=== PATIENT | female | born 1955 | race Caucasian/White ===

== ENCOUNTER 2021-12-22 09:50 | Inpatient (IN) ==
[2021-12-22] MEDS ORDERED: Acetaminophen 325 MG TABLET PO PRN (14:42)
[2021-12-22] MEDS ORDERED: NON-FORMULARY MEDICATION 1 EACH EACH (Piperacillin-Tazo-Dextrose,Iso [Zosyn 3.375 Gm/50 Ml IV SCH (18:00)
[2021-12-22] MEDS: Piperacillin/Tazobactam 3.375 GM in 0.9 % Sodium Chloride Mini Bag 100 ML IVPB SCH (18:33)
[2021-12-22] MEDS: *HR* Heparin 5,000 UNIT/ML VIAL SQ SCH (18:34)
[2021-12-22] MEDS: Gabapentin 300 MG CAPSULE PO SCH (20:50)
[2021-12-22] MEDS: Melatonin 3 MG TABLET PO PRN (20:50)
[2021-12-23] MEDS: Ondansetron ODT 4 MG TAB.RAPDIS SL SCH ×2 (00:30→08:35)
[2021-12-23] MEDS: Piperacillin/Tazobactam 3.375 GM in 0.9 % Sodium Chloride Mini Bag 100 ML IVPB SCH ×2 (05:25→17:51)
[2021-12-23] MEDS: *HR* Heparin 5,000 UNIT/ML VIAL SQ SCH ×2 (05:26→17:51)
[2021-12-23] MEDS: Cyanocobalamin (B-12) 1,000 MCG TABLET PO SCH (08:34)
[2021-12-23] MEDS: Folic Acid 1 MG TABLET PO SCH (08:35)
[2021-12-23] MEDS: Aspirin Enteric Coated 81 MG Tablet PO SCH (08:35)
[2021-12-23] MEDS: Vitamin B Complex/Vit C/Vit E 1 EACH TABLET PO SCH (08:35)
[2021-12-23 09:34] LABS: Basophils % 0.3 %; Eosinophils # 0.1 K/mcL (0.0-0.6); Eosinophils % 1.6 %; Hemoglobin 7.4 g/dL (11.5-15.4); Immature Granulocytes % 0.8 % (0-4); Lymphocytes # 1.4 K/mcL (0.6-4.6); Lymphocytes % 16.2 %; Mean Corpuscular HGB Conc 30.8 g/dL (31.6-35.5); Mean Corpuscular Hemoglobin 31.8 pg (28.0-33.3); Mean Platelet Volume 9.7 fL (9.4-12.4); Monocytes # 0.7 K/mcL (0.0-1.3); Monocytes % 7.9 %; Neutrophils # 6.3 K/mcL (1.6-8.9); Platelet Count 154 K/mcL (140-400); Red Blood Count 2.33 M/mcL (3.82-4.97); Segmented Neutrophils % 73.2 %; White Blood Count 8.7 K/mcL (4.3-11.1)
[2021-12-23 09:49] LABS: Calcium 9.1 mg/dL (8.6-10.3); Potassium 4.3 mEq/L (3.5-5.1)
[2021-12-23] MEDS ORDERED: Ondansetron ODT 4 MG TAB.RAPDIS SL PRN (11:17)
[2021-12-23] MEDS: Furosemide 40 MG TABLET PO SCH (15:47)
[2021-12-23] MEDS: amLODIPine 5 MG TABLET PO SCH (15:47)
[2021-12-23] MEDS: Gabapentin 300 MG CAPSULE PO SCH (20:17)
[2021-12-23] MEDS: Melatonin 3 MG TABLET PO PRN (23:39)
[2021-12-24] MEDS: Piperacillin/Tazobactam 3.375 GM in 0.9 % Sodium Chloride Mini Bag 100 ML IVPB SCH ×2 (04:10→16:10)
[2021-12-24] MEDS: *HR* Heparin 5,000 UNIT/ML VIAL SQ SCH ×2 (05:26→17:42)
[2021-12-24] MEDS: Furosemide 40 MG TABLET PO SCH (09:54)
[2021-12-24] MEDS: amLODIPine 5 MG TABLET PO SCH (09:55)
[2021-12-24] MEDS: Cyanocobalamin (B-12) 1,000 MCG TABLET PO SCH (09:55)
[2021-12-24] MEDS: Vitamin B Complex/Vit C/Vit E 1 EACH TABLET PO SCH (09:55)
[2021-12-24] MEDS: Aspirin Enteric Coated 81 MG Tablet PO SCH (09:55)
[2021-12-24] MEDS: Folic Acid 1 MG TABLET PO SCH (09:55)
[2021-12-24] MEDS: Gabapentin 300 MG CAPSULE PO SCH (21:02)
[2021-12-24] MEDS: Melatonin 3 MG TABLET PO PRN (23:12)
[2021-12-25] MEDS: Piperacillin/Tazobactam 3.375 GM in 0.9 % Sodium Chloride Mini Bag 100 ML IVPB SCH ×2 (05:07→16:33)
[2021-12-25] MEDS: *HR* Heparin 5,000 UNIT/ML VIAL SQ SCH ×2 (06:21→16:37)
[2021-12-25] MEDS: Furosemide 40 MG TABLET PO SCH (08:30)
[2021-12-25] MEDS: Folic Acid 1 MG TABLET PO SCH (08:30)
[2021-12-25] MEDS: Cyanocobalamin (B-12) 1,000 MCG TABLET PO SCH (08:30)
[2021-12-25] MEDS: amLODIPine 5 MG TABLET PO SCH (08:30)
[2021-12-25] MEDS: Aspirin Enteric Coated 81 MG Tablet PO SCH (08:30)
[2021-12-25] MEDS: Vitamin B Complex/Vit C/Vit E 1 EACH TABLET PO SCH (08:30)
[2021-12-25] MEDS: Gabapentin 300 MG CAPSULE PO SCH (21:21)
[2021-12-25] MEDS: Melatonin 3 MG TABLET PO PRN (21:21)
[2021-12-26] MEDS: Piperacillin/Tazobactam 3.375 GM in 0.9 % Sodium Chloride Mini Bag 100 ML IVPB SCH ×2 (03:35→17:21)
[2021-12-26] MEDS: *HR* Heparin 5,000 UNIT/ML VIAL SQ SCH ×2 (06:23→17:20)
[2021-12-26] MEDS ORDERED: Ergocalciferol (VIT D2) 50,000 UNIT (1.25MG) CAP PO SCH ×2 (09:00→09:15)
[2021-12-26] MEDS: Furosemide 40 MG TABLET PO SCH (09:10)
[2021-12-26] MEDS: Aspirin Enteric Coated 81 MG Tablet PO SCH (09:10)
[2021-12-26] MEDS: Vitamin B Complex/Vit C/Vit E 1 EACH TABLET PO SCH (09:10)
[2021-12-26] MEDS: Cyanocobalamin (B-12) 1,000 MCG TABLET PO SCH (09:10)
[2021-12-26] MEDS: amLODIPine 5 MG TABLET PO SCH (09:10)
[2021-12-26] MEDS: Folic Acid 1 MG TABLET PO SCH (09:10)
[2021-12-26 10:14] LABS: Hematocrit 23.8 % (35.3-44.9); Hemoglobin 7.3 g/dL (11.5-15.4); Mean Corpuscular HGB Conc 30.7 g/dL (31.6-35.5); Mean Corpuscular Hemoglobin 31.9 pg (28.0-33.3); Mean Corpuscular Volume 103.9 fL (83.0-100.0); Platelet Count 150 K/mcL (140-400); Red Blood Count 2.29 M/mcL (3.82-4.97); Red Cell Distribution Width 15.2 % (11.5-14.5); White Blood Count 8.6 K/mcL (4.3-11.1)
[2021-12-26 10:28] LABS: Potassium 4.3 mEq/L (3.5-5.1)
[2021-12-26] MEDS: Gabapentin 300 MG CAPSULE PO SCH (20:16)
[2021-12-26] MEDS: Melatonin 3 MG TABLET PO PRN (20:16)
[2021-12-27] MEDS: Piperacillin/Tazobactam 3.375 GM in 0.9 % Sodium Chloride Mini Bag 100 ML IVPB SCH (04:15)
[2021-12-27] MEDS: *HR* Heparin 5,000 UNIT/ML VIAL SQ SCH (05:46)
[2021-12-27 07:43] VITALS: BP 157/77; PULSE 78; RESP 20; TEMP 97.8; O2SAT 93
[2021-12-27] MEDS: Cyanocobalamin (B-12) 1,000 MCG TABLET PO SCH (10:09)
[2021-12-27] MEDS: Furosemide 40 MG TABLET PO SCH (10:09)
[2021-12-27] MEDS: amLODIPine 5 MG TABLET PO SCH (10:09)
[2021-12-27] MEDS: Folic Acid 1 MG TABLET PO SCH (10:09)
[2021-12-27] MEDS: Vitamin B Complex/Vit C/Vit E 1 EACH TABLET PO SCH (10:09)
[2021-12-27] MEDS: Aspirin Enteric Coated 81 MG Tablet PO SCH (10:09)
== END 2021-12-27 11:25 | disposition home health service (06) | DRG 189 ==
LOC: SUATTDRO 17:49 → INPPIK 17:49
PROVIDERS: ADMIT Internal Medicine; ATTEND Family Medicine